=== PATIENT | female | born 1940 | race Caucasian/White ===

== ENCOUNTER 2024-09-15 16:47 | Emergency (ER) | payer MEDICARE, OTHER, SELFPAY ==
[2024-09-15 16:58] VITALS: BP 158/97
--- NOTE | 2024-09-15 20:21 | ED.MUSCINJ ---
HPI-Injury
General
Chief Complaint: Fall
Source: patient
Exam Limitations: none
Time Seen by Provider: 09/15/24 19:49
History of Present Illness-Injury
Initial Injury comments:
84-year-old female presents after trip and fall. She fell forward hitting her head on the corner of a wall. She noted a laceration to the left eyebrow. She was having difficulty getting the wound to stop bleeding. She denies a headache or neck
pain. She is not anticoagulated. No arm or leg pain. No other complaints
Phy Exam
Physical Exam
Physical Exam:
General: Well-appearing female no acute respiratory distress
HEENT normocephalic 2 cm upside down Y-shaped laceration left lateral eyebrow pupils equal round reactive to light
Musculoskeletal exam: The spine is nontender. Good range of motion all extremities
Skin is warm neurologic normal gait conversing appropriately
Injury Course
Orders/Labs/Results
Orders:
Orders
09/15/24 17:[address] [CT Head W/o Iv Contrast] Urgent
Comment:
Reason For Exam: fall
MDM/Problems Addressed
Differential Diagnosis Includes:
Mechanical fall with laceration left eyebrow. This was cleansed with saline solution anesthetized in a local fashion using 1% lidocaine. The wound was then closed using 5-0 Prolene sutures in a simple erupted fashion. 5 sutures were required to
provide wound edge approximation and hemostasis. CT of the head was ordered through triage which I have personally reviewed and shows no obvious acute traumatic injury pending radiology report
*Critical Care Note
Total Time (30-74mins, 75-104mins- exclusive of procedures): Not Applicable
Update Note
Update Note:
CT of the head officially read by radiology is negative for acute traumatic injury. Wound care instructions were given antibacterial ointment applied to the wounds stable for discharge. Patient is to have sutures removed in 5 days
ED Attending Note
-
Portions of this chart may have been created with voice recognition software.� Occasional wrong word or��sound alike� substitutions may have occurred due to the inherent limitations of voice recognition software.
Discharge Plan
Departure
Patient Disposition: Home (Routine Discharge)
Date of Disposition: 09/15/24
Time of Disposition: 20:28
Patient with high blood pressure during this ER visit?: No
Discharge Problem:
Laceration
Instructions: Laceration Repair With Stitches (DC)
Referrals:
Ganesh Tovar MD [Family Provider, [facility]]
Activity Restrictions/Additional Instructions:
Have sutures removed in 5 days. Apply antibacterial ointment daily. You may ice for swelling. He may take Tylenol if needed for pain return if needed otherwise
Interventions
Interventions:
*Risk Screen - Suicide Last Done: 09/15/24 16:58
*General Assessment Last Done: 09/15/24 16:58
*Neglect/Abuse Screening Last Done: 09/15/24 16:58
*ED- Fall Risk Assessment Last Done: 09/15/24 16:58
*ED COVID-19 Vaccine History Last Done: 09/15/24 16:58
ED-Musculoskeletal Assessment Last Done: 09/15/24 20:23
ED- Neurological Assessment Last Done: 09/15/24 20:23
ED-Skin Assessment Last Done: 09/15/24 20:23
Discharge Date and Time
Print Language: LAO
[2024-09-15 20:24] VITALS: BP 188/81
== END 2024-09-15 20:46 | disposition home or self-care (01) ==
LOC: EMR 16:47
PROVIDERS: EMERGENCY PHYSICIAN Emergency Medicine; FAMILY PHYSICIAN Family Medicine
DX: S01.112A Laceration without foreign body of left eyelid and periocular area, initial encounter (principal); W01.198A Fall on same level from slipping, tripping and stumbling with subsequent striking against other object, initial encounter
CPT/HCPCS: 12011; 99284; 70450